=== PATIENT | male | born 1980 | race Caucasian/White ===

== ENCOUNTER 2016-07-23 13:27 | Emergency (ER) | payer OTHER, BC ==
[2016-07-23 13:33] VITALS: BP 124/80; PULSE 82; TEMP 98.8; BMI 23.0
--- NOTE | 2016-07-23 13:53 | PDOC ---
History of Present Illness - General Chief Complaint: Pain, Acute Stated Complaint: LT KNEE PAIN Time Seen by Provider: 07/23/16 13:52 History Source: Patient Exam Limitations: No Limitations - History of Present Illness Initial Comments: CHIEF COMPLAINT: 36 y/o afebrile male c/o left knee pain. HISTORY OF PRESENT ILLNESS: The patient states he was pushing a heavy cart at work when his left knee buckled. He states he know has some pain, especially when going down the stairs. He states it also escobar on him slightly from time to time. He tore meniscus in his right knee many years ago and he states it feels the same way. Vital signs on arrival are within normal limits. REVIEW OF SYSTEMS: GENERAL/CONSTITUTIONAL: No fever/chills. No weakness. No weight change. MUSCULOSKELETAL: +left knee pain. No neck or back pain. SKIN: No rash or easy bruising. NEUROLOGIC: No headache, vertigo, loss of consciousness, or loss of sensation. PHYSICAL EXAM: VITAL_SIGNS: within normal limits GENERAL_APPEARANCE: alert, cooperative, no obvious discomfort. The patient is walking with a slight limp. MENTAL_STATUS: speech clear, oriented X 3, responds appropriately to questions. NEURO: motor intact and sensory intact in injured extremity. EXTREMITIES: good pulse in injured extremity. Very minimal swelling to left knee with TTP of medial joint line. Negative Lachmann's test. Full flexion and extension of left knee. SKIN: warm, dry, good color. Past History - Past Medical History Allergies/Adverse Reactions: Allergies Allergy/AdvReac Type Severity Reaction Status Date / Time Penicillins Allergy Verified 07/23/16 13:33 Home Medications: Ambulatory Orders NK [No Known Home Medication] 07/23/16 Other medical history: denies - Psycho/Social/Smoking Cessation Hx Suicidal Ideation: No Smoking History: Never smoked Information on smoking cessation initiated: No Hx Alcohol Use: No Drug/Substance Use Hx: No *Physical Exam - Vital Signs Last Vital Signs Temp Pulse Resp BP Pulse Ox 98.8 F 82 18 124/80 98 07/23/16 13:31 07/23/16 13:31 07/23/16 13:31 07/23/16 13:31 07/23/16 13:31 Medical Decision Making - Medical Decision Making A/P: 36 y/o male with knee injury at work - possible meniscus tear. Plan is as follows: 1. PO Ibuprofen 2. DION bandage The patient saw Dr. Madden many years ago for his right knee so provided him with referral to Dr. Madden. Suggested he take Motrin for pain, follow RICE instructions and use DION bandage for comfort. Instructed him to return to the ER with any worsening or concerning symptoms. The patient verbalizes understanding of all instructions, has no further questions and is awaiting discharge. *DC/Admit/Observation/Transfer Diagnosis at time of Disposition: Meniscus tear Knee injury Qualifiers: Encounter type: initial encounter Laterality: left Qualified Code(s): S89.92XA - Unspecified injury of left lower leg, initial encounter - Discharge Dispostion Disposition: HOME Condition at time of disposition: Good - Referrals Referrals: Mike Madden MD [Staff Physician] - - Patient Instructions Printed Discharge Instructions: DI for Knee Pain, DI for Knee Sprain, How To Perform RICE (Rest, Ice, Compress, Elevate) Additional Instructions: Discharge Instructions: -You may have torn your meniscus; please follow up with Dr. Madden to have an MRI to confirm -Follow RICE instructions -Use DION bandage for comfort -Take Motrin or Ibuprofen for pain with food -Return to the ER with any worsening or concerning symptoms - Post Discharge Activity Work/School Note: Back to Work
[2016-07-23] MEDS ORDERED: IBUPROFEN 600 MG TABLET (FP) PO ONE ×2 (14:29→14:35)
== END 2016-07-23 14:43 | disposition home or self-care (01) ==
LOC: JERFT 13:27
DX: S83.207A Unspecified tear of unspecified meniscus, current injury, left knee, initial encounter (principal); X58.XXXA Exposure to other specified factors, initial encounter; Y93.89 Activity, other specified; Y92.9 Unspecified place or not applicable; Y99.0 Civilian activity done for income or pay
CPT/HCPCS: 99281-25

== ENCOUNTER 2017-01-13 05:12 | Day surgery (SDC) | payer OTHER, BC ==
[2017-01-12 11:24] VITALS: BMI 24.0
[2017-01-13] MEDS ORDERED: LIDOCAINE 1%/EPI 1:100000 (20 ML MULTI DOSE VIAL) ONE (07:21)
[2017-01-13] MEDS ORDERED: BUPIVACAINE HCL/PF 0.5% (5MG/ML) 10 ML VIAL ONE (07:21)
--- NOTE | 2017-01-13 07:57 | HP ---
[facility] - Chief Complaint Chief Complaint: left knee pain History Source: Patient - Past Medical History Allergies/Adverse Reactions: Allergies Allergy/AdvReac Type Severity Reaction Status Date / Time Penicillins Allergy "?" Verified 01/12/17 11:24 - Current Medications Current Medications: Home Medications Medication Instructions Recorded Multivitamin [One Daily] 1 each PO DAILY 01/12/17 Satellite Physical Exam - Physical Examination Vital Signs: Vital Signs Period Temp Pulse Resp BP Sys/Martinez Pulse Ox Last 24 Hr 98.4 F 82 16 124/83 98 Extremities: Other (+ joint line tenderness) [facility] Impression/Plan - Impression/Plan Impression: internal deraangement left knee Operative Procedure: arthroscopy left knee Date to be Performed: 01/13/17
[2017-01-13] MEDS ORDERED: MIDAZOLAM HCL 2 MG/2 ML SINGLE DOSE VIAL ONE (07:59)
[2017-01-13] MEDS ORDERED: PROPOFOL 20 ML ONE (07:59)
[2017-01-13] MEDS ORDERED: LIDOCAINE HCL/PF 2% SDV 5ML VIAL ONE (08:09)
[2017-01-13] MEDS ORDERED: DEXAMETHASONE SOD PHOSPHATE 4 MG/1 ML VIAL ONE (08:15)
[2017-01-13] MEDS ORDERED: BUPIVACAINE HCL/PF 0.5% (5MG/ML) 10 ML VIAL IJ ONE (08:22)
[2017-01-13] MEDS ORDERED: LIDOCAINE 1%/EPI 1:100000 (20 ML MULTI DOSE VIAL) IJ ONE (08:22)
[2017-01-13] MEDS ORDERED: KETOROLAC TROMETHAMINE 30 MG/1 ML VIAL ONE (08:35)
[2017-01-13] MEDS ORDERED: ONDANSETRON 4 MG/2 ML VIAL IVPUSH PRN (08:50)
[2017-01-13] MEDS ORDERED: PROMETHAZINE HCL 25 MG/1 ML VIAL IVPUSH PRN (08:50)
[2017-01-13] MEDS ORDERED: oxyCODONE HCL 5 MG TABLET PO PRN ×2 (08:50→11:18)
--- NOTE | 2017-01-13 08:53 | OP ---
Operative Note - Note: Operative Date: 01/13/17 Pre-Operative Diagnosis: internal derangement left knee Operation: arthroscopy left knee with MM Post-Operative Diagnosis: Same as Pre-op Surgeon: Mike Madden Anesthesia: General Operative Report Dictated: Yes
[2017-01-13] MEDS ORDERED: LACTATED RINGERS SOLUTION 1,000 ML IV SCH (09:00)
[2017-01-13 09:34] VITALS: TEMP 98.3
--- NOTE | 2017-01-13 09:54 | SPEC ---
DATE OF OPERATION: 01/13/2017 PREOPERATIVE DIAGNOSIS: Left medial meniscus tear. POSTOPERATIVE DIAGNOSIS: Left medial meniscus tear. PROCEDURE: Arthroscopy of the left knee, partial medial meniscectomy. 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 ANESTHESIA: General with LMA. CLOSURE: 4-0 nylon. COMPLICATIONS: None. CONDITION: To recovery room in stable condition. DESCRIPTION OF OPERATIVE PROCEDURE: Patient was taken to the operating room on January 13, 2017. General anesthesia with LMA was administered by the anesthesiologist. The left lower extremity was prepped and draped in the usual sterile fashion. The medial and lateral infrapatellar portal sites were infiltrated with 1% Xylocaine with epinephrine. Both portals were then made with a 15 blade followed by a blunt trocar. The scope was placed in the lateral infrapatellar portal and up into the suprapatellar pouch. The knee was inflated with a cocktail of 10 mL of 1% Xylocaine, 10 mL of 0.5% Marcaine, and 20 mL of arthroscopic saline. This was allowed to sit in the knee for a few minutes to allow the anesthetic to work intraarticularly. The scope was placed in the lateral infrapatellar portal and up into the suprapatellar pouch. The pouch was visualized to be clean. The medial and lateral gutters were visualized to be clean. The undersurface of the patella and trochlea were visualized to be intact. With valgus stress on the knee, the medial compartment was entered. The medial meniscus was visualized, probed, and found to have a complex tear of the posterior horn. This was debrided back to smooth stable meniscal tissue using a meniscal biter and arthroscopic shaver. The medial femoral condyle was run and found to be intact as well as the medial tibial plateau. At 90 degrees, the ACL was visualized, probed, and found to be intact. In the figure 4 position, the lateral compartment was entered. The lateral meniscus was visualized, probed, and found to be intact. The lateral femoral condyle was run and found to be intact as was the lateral tibial plateau. The knee was irrigated with copious amounts of irrigation and then the fluid was drained. The inferomedial portal was closed then with 4-0 nylon. Prior to pulling the trocar from the lateral infrapatellar portal, 20 mL of 0.5% Marcaine was infused into the knee for postoperative analgesia. The trocar was then pulled and the incision was closed with 4-0 nylon suture. A sterile pressure dressing was applied. Patient awakened from anesthesia and transferred to recovery in stable condition. No complication. Estimated blood loss negligible. Lester [id number]
[2017-01-13 10:08] VITALS: PULSE 66
[2017-01-13 13:25] VITALS: BP 108/71
--- NOTE | 2017-01-15 10:01 | PATH ---
Surgical Pathology Report Patient Name: TEOFILO VILLARREAL [facility]. Rec. #: [id number] /Age/Gender: 1980 (Age: 36) / M Account: [id number] Location: [facility] SUR[facility] Taken: 01/13/2017 Received: 01/13/2017 Reported: 01/15/2017 Physicians: Mike Madden M.D. Specimen(s) Received LEFT KNEE SHAVINGS Clinical History None given Final Diagnosis KNEE, LEFT, ARTHROSCOPIC SHAVING: FIBROCARTILAGE WITH MYXOID DEGENERATIVE CHANGES, ALONG WITH PORTIONS OF SYNOVIUM AND HYALINE CARTILAGE. Electronically Signed Jair Walter M.D. Gross Description Received fresh, labeled "left knee shavings," is a 4.2 x 3.1 x 0.3 cm. aggregate of gonsales-yellow soft tissue fragments. A asset protection representative portion is submitted in one cassette. /01/13/201701/13/2017
== END 2017-01-13 11:10 | disposition home or self-care (01) ==
LOC: JASU-SURG 05:12
PROVIDERS: ATTEND Orthopaedic Surgery
PROC: 0SBD4ZZ Excision of Left Knee Joint, Percutaneous Endoscopic Approach (ICD-10-PCS; principal; 2017-01-13 08:00)
DX: S83.241A Other tear of medial meniscus, current injury, right knee, initial encounter (principal); X58.XXXA Exposure to other specified factors, initial encounter; Y93.9 Activity, unspecified; Y92.9 Unspecified place or not applicable; Y99.9 Unspecified external cause status
CPT/HCPCS: 88304-TC; 94760